=== PATIENT | female | born 1950 | race Caucasian/White ===

== ENCOUNTER → 2024-07-13 09:53 | Outpatient (CLI) | payer MEDICARE, BC, SELFPAY | LOC: WC 10:03 | PROVIDERS: Family Provider Specialist; PCP Student in an Organized Health Care Education/Training Program; Referring Provider Student in an Organized Health Care Education/Training Program; Visit Provider Surgery | DX: L97.812 Non-pressure chronic ulcer of other part of right lower leg with fat layer exposed (principal); L59.8 Other specified disorders of the skin and subcutaneous tissue related to radiation; I10 Essential (primary) hypertension; I25.10 Atherosclerotic heart disease of native coronary artery without angina pectoris | CPT/HCPCS: 11042; 87070; 87077; 87147; 87186; 87205; 99203; 99214 ==

== ENCOUNTER → 2024-07-21 08:43 | Outpatient (CLI) | payer MEDICARE, BC, SELFPAY | LOC: WC 08:47 | PROVIDERS: Family Provider Specialist; PCP Student in an Organized Health Care Education/Training Program; Referring Provider Student in an Organized Health Care Education/Training Program; Visit Provider Surgery | DX: L59.8 Other specified disorders of the skin and subcutaneous tissue related to radiation (principal); L97.812 Non-pressure chronic ulcer of other part of right lower leg with fat layer exposed | CPT/HCPCS: 11042; 99213 ==

== ENCOUNTER → 2024-07-28 10:48 | Outpatient (CLI) | payer MEDICARE, BC, SELFPAY | PROVIDERS: Family Provider Specialist; PCP Student in an Organized Health Care Education/Training Program; Referring Provider Student in an Organized Health Care Education/Training Program; Visit Provider Surgery | DX: L59.8 Other specified disorders of the skin and subcutaneous tissue related to radiation (principal); L97.812 Non-pressure chronic ulcer of other part of right lower leg with fat layer exposed | CPT/HCPCS: 11042 ==

== ENCOUNTER → 2024-07-28 11:44 | Outpatient (CLI) | payer MEDICARE, BC, SELFPAY ==
--- NOTE | 2024-07-28 11:45 | DI.RAD.S_ITS ---
PROCEDURE: XR CHEST 2V INDICATIONS: evaluation for hyperbaric oxygen therapy TECHNIQUE: 2 views of the chest were acquired. COMPARISON: None. FINDINGS: Heart, mediastinum and pulmonary vascular: Heart is normal in size and configuration. 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 Pulmonary vascular is normal. Lungs: Minimal perihilar airspace disease is likely fibrosis Pleural spaces: Normal-no effusions or pneumothorax. IMPRESSION: No acute cardiopulmonary disease Small hiatal hernia Dictated by: Joshua Rivas M.D. on 07/29/2024 at 9:53 Approved by: Joshua Rivas M.D. on 07/29/2024 at 9:55
== END ==
PROVIDERS: Family Provider Specialist; PCP Student in an Organized Health Care Education/Training Program; Referring Provider Surgery; Visit Provider Surgery
DX: Z01.818 Encounter for other preprocedural examination (principal); K44.9 Diaphragmatic hernia without obstruction or gangrene
CPT/HCPCS: 71046

== ENCOUNTER → 2024-07-31 14:01 | Outpatient (CLI) | payer MEDICARE, BC, SELFPAY | PROVIDERS: Family Provider Specialist; PCP Student in an Organized Health Care Education/Training Program; Referring Provider Student in an Organized Health Care Education/Training Program; Visit Provider Physician Assistant | DX: L59.8 Other specified disorders of the skin and subcutaneous tissue related to radiation (principal); L97.812 Non-pressure chronic ulcer of other part of right lower leg with fat layer exposed | CPT/HCPCS: 99183; G0277 ==

== ENCOUNTER → 2024-08-04 11:21 | Outpatient (CLI) | payer MEDICARE, BC, SELFPAY | PROVIDERS: Family Provider Specialist; PCP Student in an Organized Health Care Education/Training Program; Referring Provider Student in an Organized Health Care Education/Training Program; Visit Provider Surgery | DX: L97.812 Non-pressure chronic ulcer of other part of right lower leg with fat layer exposed (principal); L59.8 Other specified disorders of the skin and subcutaneous tissue related to radiation | CPT/HCPCS: 11042; 99183; G0277 ==

== ENCOUNTER → 2024-08-05 16:29 | Outpatient (CLI) | payer MEDICARE, BC, SELFPAY | PROVIDERS: Family Provider Specialist; PCP Student in an Organized Health Care Education/Training Program; Referring Provider Student in an Organized Health Care Education/Training Program; Visit Provider Surgery | DX: L59.8 Other specified disorders of the skin and subcutaneous tissue related to radiation (principal); L97.812 Non-pressure chronic ulcer of other part of right lower leg with fat layer exposed | CPT/HCPCS: 99183; G0277 ==

== ENCOUNTER → 2024-08-06 15:53 | Outpatient (CLI) | payer MEDICARE, BC, SELFPAY | PROVIDERS: Family Provider Specialist; PCP Student in an Organized Health Care Education/Training Program; Referring Provider Student in an Organized Health Care Education/Training Program; Visit Provider Surgery | DX: L97.812 Non-pressure chronic ulcer of other part of right lower leg with fat layer exposed (principal); L59.8 Other specified disorders of the skin and subcutaneous tissue related to radiation | CPT/HCPCS: 99183; G0277 ==

== ENCOUNTER → 2024-08-07 15:29 | Outpatient (CLI) | payer MEDICARE, BC, SELFPAY | PROVIDERS: Family Provider Specialist; PCP Student in an Organized Health Care Education/Training Program; Referring Provider Student in an Organized Health Care Education/Training Program; Visit Provider Surgery | DX: L97.812 Non-pressure chronic ulcer of other part of right lower leg with fat layer exposed (principal); L59.8 Other specified disorders of the skin and subcutaneous tissue related to radiation | CPT/HCPCS: 99183; G0277 ==

== ENCOUNTER → 2024-08-10 16:11 | Outpatient (CLI) | payer MEDICARE, BC, SELFPAY | PROVIDERS: Family Provider Specialist; PCP Student in an Organized Health Care Education/Training Program; Referring Provider Student in an Organized Health Care Education/Training Program; Visit Provider Surgery | DX: L59.8 Other specified disorders of the skin and subcutaneous tissue related to radiation (principal); L97.812 Non-pressure chronic ulcer of other part of right lower leg with fat layer exposed | CPT/HCPCS: 99183; G0277 ==

== ENCOUNTER → 2024-08-11 11:20 | Outpatient (CLI) | payer MEDICARE, BC, SELFPAY | LOC: WC 11:28 | PROVIDERS: Family Provider Specialist; PCP Student in an Organized Health Care Education/Training Program; Referring Provider Student in an Organized Health Care Education/Training Program; Visit Provider Surgery | DX: L59.8 Other specified disorders of the skin and subcutaneous tissue related to radiation (principal); L97.812 Non-pressure chronic ulcer of other part of right lower leg with fat layer exposed; E66.9 Obesity, unspecified; Z68.41 Body mass index [BMI] 40.0-44.9, adult; R60.0 Localized edema | CPT/HCPCS: 11042; 99183; 99213; G0277 ==

== ENCOUNTER → 2024-08-12 13:28 | Outpatient (CLI) | payer MEDICARE, BC, SELFPAY | LOC: WC 13:30 | PROVIDERS: Family Provider Specialist; PCP Student in an Organized Health Care Education/Training Program; Referring Provider Student in an Organized Health Care Education/Training Program; Visit Provider Surgery | DX: L59.8 Other specified disorders of the skin and subcutaneous tissue related to radiation (principal); L97.812 Non-pressure chronic ulcer of other part of right lower leg with fat layer exposed | CPT/HCPCS: 99183; G0277 ==

== ENCOUNTER → 2024-08-13 13:20 | Outpatient (CLI) | payer MEDICARE, BC, SELFPAY | LOC: WC 13:23 | PROVIDERS: Family Provider Specialist; PCP Student in an Organized Health Care Education/Training Program; Referring Provider Student in an Organized Health Care Education/Training Program; Visit Provider Surgery | DX: L59.8 Other specified disorders of the skin and subcutaneous tissue related to radiation (principal); L97.812 Non-pressure chronic ulcer of other part of right lower leg with fat layer exposed | CPT/HCPCS: 99183; G0277 ==

== ENCOUNTER → 2024-08-14 15:41 | Outpatient (CLI) | payer MEDICARE, BC, SELFPAY | LOC: WC 15:43 | PROVIDERS: Family Provider Specialist; PCP Student in an Organized Health Care Education/Training Program; Referring Provider Student in an Organized Health Care Education/Training Program; Visit Provider Physician Assistant | DX: L59.8 Other specified disorders of the skin and subcutaneous tissue related to radiation (principal); L97.812 Non-pressure chronic ulcer of other part of right lower leg with fat layer exposed | CPT/HCPCS: 99183; G0277 ==

== ENCOUNTER → 2024-08-17 15:35 | Outpatient (CLI) | payer MEDICARE, BC, SELFPAY | LOC: WC 15:36 | PROVIDERS: Family Provider Specialist; PCP Student in an Organized Health Care Education/Training Program; Referring Provider Student in an Organized Health Care Education/Training Program; Visit Provider Surgery | DX: L59.8 Other specified disorders of the skin and subcutaneous tissue related to radiation (principal); L97.812 Non-pressure chronic ulcer of other part of right lower leg with fat layer exposed | CPT/HCPCS: 99183; G0277 ==

== ENCOUNTER → 2024-08-18 12:42 | Outpatient (CLI) | payer MEDICARE, BC, SELFPAY | LOC: WC 12:43 | PROVIDERS: Family Provider Specialist; PCP Student in an Organized Health Care Education/Training Program; Referring Provider Student in an Organized Health Care Education/Training Program; Visit Provider Surgery | DX: L59.8 Other specified disorders of the skin and subcutaneous tissue related to radiation (principal); L97.812 Non-pressure chronic ulcer of other part of right lower leg with fat layer exposed | CPT/HCPCS: 15271; 99183; 99212; G0277; Q4196 ==

== ENCOUNTER → 2024-08-19 16:23 | Outpatient (CLI) | payer MEDICARE, BC, SELFPAY | LOC: WC 16:30 | PROVIDERS: Family Provider Specialist; PCP Student in an Organized Health Care Education/Training Program; Referring Provider Student in an Organized Health Care Education/Training Program; Visit Provider Surgery | DX: L59.8 Other specified disorders of the skin and subcutaneous tissue related to radiation (principal); L97.812 Non-pressure chronic ulcer of other part of right lower leg with fat layer exposed | CPT/HCPCS: 99183; G0277 ==

== ENCOUNTER → 2024-08-20 11:56 | Outpatient (CLI) | payer MEDICARE, BC, SELFPAY | LOC: WC 12:00 | PROVIDERS: Family Provider Specialist; PCP Student in an Organized Health Care Education/Training Program; Referring Provider Student in an Organized Health Care Education/Training Program; Visit Provider Surgery | DX: L59.8 Other specified disorders of the skin and subcutaneous tissue related to radiation (principal); L97.812 Non-pressure chronic ulcer of other part of right lower leg with fat layer exposed | CPT/HCPCS: 99183; G0277 ==

== ENCOUNTER → 2024-08-21 16:07 | Outpatient (CLI) | payer MEDICARE, BC, SELFPAY | LOC: WC 16:12 | PROVIDERS: Family Provider Specialist; PCP Student in an Organized Health Care Education/Training Program; Referring Provider Student in an Organized Health Care Education/Training Program; Visit Provider Physician Assistant | DX: L59.8 Other specified disorders of the skin and subcutaneous tissue related to radiation (principal); L97.812 Non-pressure chronic ulcer of other part of right lower leg with fat layer exposed | CPT/HCPCS: 99183; G0277 ==

== ENCOUNTER → 2024-08-24 15:27 | Outpatient (CLI) | payer MEDICARE, BC, SELFPAY | LOC: WC 15:29 | PROVIDERS: Family Provider Specialist; PCP Student in an Organized Health Care Education/Training Program; Referring Provider Student in an Organized Health Care Education/Training Program; Visit Provider Surgery | DX: L59.8 Other specified disorders of the skin and subcutaneous tissue related to radiation (principal); L97.812 Non-pressure chronic ulcer of other part of right lower leg with fat layer exposed | CPT/HCPCS: 99183; G0277 ==

== ENCOUNTER → 2024-08-25 11:37 | Outpatient (CLI) | payer MEDICARE, BC, SELFPAY | LOC: WC 11:40 | PROVIDERS: Family Provider Specialist; PCP Student in an Organized Health Care Education/Training Program; Referring Provider Student in an Organized Health Care Education/Training Program; Visit Provider Surgery | DX: L59.8 Other specified disorders of the skin and subcutaneous tissue related to radiation (principal); L97.812 Non-pressure chronic ulcer of other part of right lower leg with fat layer exposed | CPT/HCPCS: 11042; 99183; G0277 ==

== ENCOUNTER → 2024-08-26 15:50 | Outpatient (CLI) | payer MEDICARE, BC, SELFPAY | LOC: WC 15:52 | PROVIDERS: Family Provider Specialist; PCP Student in an Organized Health Care Education/Training Program; Referring Provider Student in an Organized Health Care Education/Training Program; Visit Provider Surgery | DX: L59.8 Other specified disorders of the skin and subcutaneous tissue related to radiation (principal); L97.812 Non-pressure chronic ulcer of other part of right lower leg with fat layer exposed | CPT/HCPCS: 99183; G0277 ==

== ENCOUNTER → 2024-08-27 14:07 | Outpatient (CLI) | payer MEDICARE, BC, SELFPAY | PROVIDERS: Family Provider Specialist; PCP Student in an Organized Health Care Education/Training Program; Referring Provider Student in an Organized Health Care Education/Training Program; Visit Provider Surgery | DX: L97.812 Non-pressure chronic ulcer of other part of right lower leg with fat layer exposed (principal); L59.8 Other specified disorders of the skin and subcutaneous tissue related to radiation | CPT/HCPCS: 99183; G0277 ==

== ENCOUNTER → 2024-08-28 14:33 | Outpatient (CLI) | payer MEDICARE, BC, SELFPAY | LOC: WC 14:35 | PROVIDERS: Family Provider Specialist; PCP Student in an Organized Health Care Education/Training Program; Referring Provider Student in an Organized Health Care Education/Training Program; Visit Provider Physician Assistant | DX: L97.812 Non-pressure chronic ulcer of other part of right lower leg with fat layer exposed (principal); L59.8 Other specified disorders of the skin and subcutaneous tissue related to radiation | CPT/HCPCS: 99183; G0277 ==

== ENCOUNTER → 2024-08-31 11:32 | Outpatient (CLI) | payer MEDICARE, BC, SELFPAY | LOC: WC 11:33 | PROVIDERS: Family Provider Specialist; PCP Student in an Organized Health Care Education/Training Program; Referring Provider Student in an Organized Health Care Education/Training Program; Visit Provider Physician Assistant | DX: L59.8 Other specified disorders of the skin and subcutaneous tissue related to radiation (principal); L97.812 Non-pressure chronic ulcer of other part of right lower leg with fat layer exposed | CPT/HCPCS: 11042; 99183; 99213; G0277 ==

== ENCOUNTER → 2024-09-01 12:57 | Outpatient (CLI) | payer MEDICARE, BC, SELFPAY | PROVIDERS: Family Provider Specialist; PCP Student in an Organized Health Care Education/Training Program; Referring Provider Student in an Organized Health Care Education/Training Program; Visit Provider Surgery | DX: L59.8 Other specified disorders of the skin and subcutaneous tissue related to radiation (principal); L97.812 Non-pressure chronic ulcer of other part of right lower leg with fat layer exposed | CPT/HCPCS: 99183; G0277 ==

== ENCOUNTER → 2024-09-02 13:39 | Outpatient (CLI) | payer MEDICARE, BC, SELFPAY | PROVIDERS: Family Provider Specialist; PCP Student in an Organized Health Care Education/Training Program; Referring Provider Student in an Organized Health Care Education/Training Program; Visit Provider Surgery | DX: L59.8 Other specified disorders of the skin and subcutaneous tissue related to radiation (principal); L97.812 Non-pressure chronic ulcer of other part of right lower leg with fat layer exposed | CPT/HCPCS: 99183; G0277 ==

== ENCOUNTER → 2024-09-03 14:07 | Outpatient (CLI) | payer MEDICARE, BC, SELFPAY | PROVIDERS: Family Provider Specialist; PCP Student in an Organized Health Care Education/Training Program; Referring Provider Student in an Organized Health Care Education/Training Program; Visit Provider Surgery | DX: L59.8 Other specified disorders of the skin and subcutaneous tissue related to radiation (principal); L97.812 Non-pressure chronic ulcer of other part of right lower leg with fat layer exposed | CPT/HCPCS: 99183; G0277 ==

== ENCOUNTER → 2024-09-04 14:16 | Outpatient (CLI) | payer MEDICARE, BC, SELFPAY | LOC: WC 14:17 | PROVIDERS: Family Provider Specialist; PCP Student in an Organized Health Care Education/Training Program; Referring Provider Student in an Organized Health Care Education/Training Program; Visit Provider Surgery | DX: L59.8 Other specified disorders of the skin and subcutaneous tissue related to radiation (principal); L97.812 Non-pressure chronic ulcer of other part of right lower leg with fat layer exposed | CPT/HCPCS: 99183; G0277 ==

== ENCOUNTER → 2024-09-07 15:09 | Outpatient (CLI) | payer MEDICARE, BC, SELFPAY | LOC: WC 15:10 | PROVIDERS: Family Provider Specialist; PCP Student in an Organized Health Care Education/Training Program; Referring Provider Student in an Organized Health Care Education/Training Program; Visit Provider Surgery | DX: L59.8 Other specified disorders of the skin and subcutaneous tissue related to radiation (principal); L97.812 Non-pressure chronic ulcer of other part of right lower leg with fat layer exposed | CPT/HCPCS: 99183; G0277 ==

== ENCOUNTER → 2024-09-08 15:50 | Outpatient (CLI) | payer MEDICARE, BC, SELFPAY | LOC: WC 15:52 | PROVIDERS: Family Provider Specialist; PCP Student in an Organized Health Care Education/Training Program; Referring Provider Student in an Organized Health Care Education/Training Program; Visit Provider Surgery | DX: L59.8 Other specified disorders of the skin and subcutaneous tissue related to radiation (principal); L97.812 Non-pressure chronic ulcer of other part of right lower leg with fat layer exposed | CPT/HCPCS: 11042; 99183; 99213; G0277 ==

== ENCOUNTER → 2024-09-09 16:17 | Outpatient (CLI) | payer MEDICARE, BC, SELFPAY | LOC: WC 16:19 | PROVIDERS: Family Provider Specialist; PCP Student in an Organized Health Care Education/Training Program; Referring Provider Student in an Organized Health Care Education/Training Program; Visit Provider Surgery | DX: L59.8 Other specified disorders of the skin and subcutaneous tissue related to radiation (principal); L97.812 Non-pressure chronic ulcer of other part of right lower leg with fat layer exposed | CPT/HCPCS: 99183; G0277 ==

== ENCOUNTER → 2024-09-10 11:07 | Outpatient (CLI) | payer MEDICARE, BC, SELFPAY | LOC: WC 11:14 | PROVIDERS: Family Provider Specialist; PCP Student in an Organized Health Care Education/Training Program; Referring Provider Student in an Organized Health Care Education/Training Program; Visit Provider Surgery | DX: L59.8 Other specified disorders of the skin and subcutaneous tissue related to radiation (principal); L97.812 Non-pressure chronic ulcer of other part of right lower leg with fat layer exposed | CPT/HCPCS: 99183; G0277 ==

== ENCOUNTER → 2024-09-14 16:03 | Outpatient (CLI) | payer MEDICARE, BC, SELFPAY | PROVIDERS: Family Provider Specialist; PCP Student in an Organized Health Care Education/Training Program; Referring Provider Student in an Organized Health Care Education/Training Program; Visit Provider Surgery | DX: L59.8 Other specified disorders of the skin and subcutaneous tissue related to radiation (principal); L97.812 Non-pressure chronic ulcer of other part of right lower leg with fat layer exposed | CPT/HCPCS: 99183; G0277 ==

== ENCOUNTER → 2024-09-15 15:39 | Outpatient (CLI) | payer MEDICARE, BC, SELFPAY | PROVIDERS: Family Provider Specialist; PCP Student in an Organized Health Care Education/Training Program; Referring Provider Student in an Organized Health Care Education/Training Program; Visit Provider Surgery | DX: L59.8 Other specified disorders of the skin and subcutaneous tissue related to radiation (principal); L97.812 Non-pressure chronic ulcer of other part of right lower leg with fat layer exposed | CPT/HCPCS: 11042; 99183; G0277 ==

== ENCOUNTER → 2024-09-16 16:00 | Outpatient (CLI) | payer MEDICARE, BC, SELFPAY | PROVIDERS: Family Provider Specialist; PCP Student in an Organized Health Care Education/Training Program; Referring Provider Student in an Organized Health Care Education/Training Program; Visit Provider Surgery | DX: L59.8 Other specified disorders of the skin and subcutaneous tissue related to radiation (principal); L97.812 Non-pressure chronic ulcer of other part of right lower leg with fat layer exposed | CPT/HCPCS: 99183; G0277 ==

== ENCOUNTER → 2024-09-16 16:49 | Outpatient (CLI) | payer MEDICARE, BC, SELFPAY ==
[2024-09-16 18:51] LABS: Hemoglobin A1C% w Est Avg Glu 5.4 % (4.0-6.0)
== END ==
PROVIDERS: Family Provider Specialist; PCP Student in an Organized Health Care Education/Training Program; Referring Provider Surgery; Visit Provider Surgery
DX: L97.812 Non-pressure chronic ulcer of other part of right lower leg with fat layer exposed (principal); L59.8 Other specified disorders of the skin and subcutaneous tissue related to radiation
CPT/HCPCS: 36415; 83036

== ENCOUNTER → 2024-09-17 14:03 | Outpatient (CLI) | payer MEDICARE, BC, SELFPAY | PROVIDERS: Family Provider Specialist; PCP Student in an Organized Health Care Education/Training Program; Referring Provider Student in an Organized Health Care Education/Training Program; Visit Provider Surgery | DX: L59.8 Other specified disorders of the skin and subcutaneous tissue related to radiation (principal); L97.812 Non-pressure chronic ulcer of other part of right lower leg with fat layer exposed | CPT/HCPCS: 99183; G0277 ==

== ENCOUNTER → 2024-09-18 12:42 | Outpatient (CLI) | payer MEDICARE, BC, SELFPAY | PROVIDERS: Family Provider Specialist; PCP Student in an Organized Health Care Education/Training Program; Referring Provider Student in an Organized Health Care Education/Training Program; Visit Provider Nurse Practitioner Family | DX: L59.8 Other specified disorders of the skin and subcutaneous tissue related to radiation (principal); L97.812 Non-pressure chronic ulcer of other part of right lower leg with fat layer exposed | CPT/HCPCS: 99183; G0277 ==

== ENCOUNTER → 2024-09-22 11:14 | Outpatient (CLI) | payer MEDICARE, BC, SELFPAY | LOC: WC 11:15 | PROVIDERS: Family Provider Specialist; PCP Student in an Organized Health Care Education/Training Program; Referring Provider Student in an Organized Health Care Education/Training Program; Visit Provider Surgery | DX: L59.8 Other specified disorders of the skin and subcutaneous tissue related to radiation (principal); L97.812 Non-pressure chronic ulcer of other part of right lower leg with fat layer exposed; L53.9 Erythematous condition, unspecified; E66.9 Obesity, unspecified; Z68.41 Body mass index [BMI] 40.0-44.9, adult | CPT/HCPCS: 15271; Q4159 ==

== ENCOUNTER → 2024-09-23 13:04 | Outpatient (CLI) | payer MEDICARE, BC, SELFPAY | LOC: WC 13:06 | PROVIDERS: Family Provider Specialist; PCP Student in an Organized Health Care Education/Training Program; Referring Provider Student in an Organized Health Care Education/Training Program; Visit Provider Nurse Practitioner Family | DX: L59.8 Other specified disorders of the skin and subcutaneous tissue related to radiation (principal); L97.812 Non-pressure chronic ulcer of other part of right lower leg with fat layer exposed | CPT/HCPCS: 99183; G0277 ==

== ENCOUNTER → 2024-09-24 15:42 | Outpatient (CLI) | payer MEDICARE, BC, SELFPAY | LOC: WC 15:43 | PROVIDERS: Family Provider Specialist; PCP Student in an Organized Health Care Education/Training Program; Referring Provider Student in an Organized Health Care Education/Training Program; Visit Provider Nurse Practitioner Family | DX: L59.8 Other specified disorders of the skin and subcutaneous tissue related to radiation (principal); L97.812 Non-pressure chronic ulcer of other part of right lower leg with fat layer exposed | CPT/HCPCS: 99183; G0277 ==

== ENCOUNTER → 2024-09-25 14:40 | Outpatient (CLI) | payer MEDICARE, BC, SELFPAY | LOC: WC 14:41 | PROVIDERS: Family Provider Specialist; PCP Student in an Organized Health Care Education/Training Program; Referring Provider Student in an Organized Health Care Education/Training Program; Visit Provider Physician Assistant | DX: L59.8 Other specified disorders of the skin and subcutaneous tissue related to radiation (principal); L97.812 Non-pressure chronic ulcer of other part of right lower leg with fat layer exposed | CPT/HCPCS: 99183; G0277 ==

== ENCOUNTER → 2024-09-28 15:57 | Outpatient (CLI) | payer MEDICARE, BC, SELFPAY | LOC: WC 15:58 | PROVIDERS: Family Provider Specialist; PCP Student in an Organized Health Care Education/Training Program; Referring Provider Student in an Organized Health Care Education/Training Program; Visit Provider Surgery | DX: L59.8 Other specified disorders of the skin and subcutaneous tissue related to radiation (principal); L97.812 Non-pressure chronic ulcer of other part of right lower leg with fat layer exposed | CPT/HCPCS: 99183; G0277 ==

== ENCOUNTER → 2024-09-29 10:11 | Outpatient (CLI) | payer MEDICARE, BC, SELFPAY | LOC: WC 10:19 | PROVIDERS: Family Provider Specialist; PCP Student in an Organized Health Care Education/Training Program; Referring Provider Student in an Organized Health Care Education/Training Program; Visit Provider Surgery | DX: L97.812 Non-pressure chronic ulcer of other part of right lower leg with fat layer exposed (principal); L59.8 Other specified disorders of the skin and subcutaneous tissue related to radiation; Z85.858 Personal history of malignant neoplasm of other endocrine glands; E66.01 Morbid (severe) obesity due to excess calories; Z68.41 Body mass index [BMI] 40.0-44.9, adult | CPT/HCPCS: 15271; 99183; G0277; Q4159 ==

== ENCOUNTER → 2024-09-30 15:20 | Outpatient (CLI) | payer MEDICARE, BC, SELFPAY | LOC: WC 15:22 | PROVIDERS: Family Provider Specialist; PCP Student in an Organized Health Care Education/Training Program; Referring Provider Student in an Organized Health Care Education/Training Program; Visit Provider Surgery | DX: L59.8 Other specified disorders of the skin and subcutaneous tissue related to radiation (principal); L97.812 Non-pressure chronic ulcer of other part of right lower leg with fat layer exposed | CPT/HCPCS: 99183; G0277 ==

== ENCOUNTER → 2024-10-02 14:46 | Outpatient (CLI) | payer MEDICARE, BC, SELFPAY | LOC: WC 14:47 | PROVIDERS: Family Provider Specialist; PCP Student in an Organized Health Care Education/Training Program; Referring Provider Student in an Organized Health Care Education/Training Program; Visit Provider Physician Assistant | DX: L59.8 Other specified disorders of the skin and subcutaneous tissue related to radiation (principal); L97.812 Non-pressure chronic ulcer of other part of right lower leg with fat layer exposed | CPT/HCPCS: 99183; G0277 ==

== ENCOUNTER → 2024-10-05 13:44 | Outpatient (CLI) | payer MEDICARE, BC, SELFPAY | LOC: WC 13:46 | PROVIDERS: Family Provider Specialist; PCP Student in an Organized Health Care Education/Training Program; Referring Provider Student in an Organized Health Care Education/Training Program; Visit Provider Surgery | DX: L59.8 Other specified disorders of the skin and subcutaneous tissue related to radiation (principal); L97.812 Non-pressure chronic ulcer of other part of right lower leg with fat layer exposed | CPT/HCPCS: 99183; G0277 ==

== ENCOUNTER → 2024-10-06 11:45 | Outpatient (CLI) | payer MEDICARE, BC, SELFPAY | LOC: WC 11:46 | PROVIDERS: Family Provider Specialist; PCP Student in an Organized Health Care Education/Training Program; Referring Provider Student in an Organized Health Care Education/Training Program; Visit Provider Surgery | DX: L59.8 Other specified disorders of the skin and subcutaneous tissue related to radiation (principal); L97.812 Non-pressure chronic ulcer of other part of right lower leg with fat layer exposed; L08.89 Other specified local infections of the skin and subcutaneous tissue; I10 Essential (primary) hypertension; Z85.828 Personal history of other malignant neoplasm of skin; E66.9 Obesity, unspecified; Z68.41 Body mass index [BMI] 40.0-44.9, adult; I25.10 Atherosclerotic heart disease of native coronary artery without angina pectoris; Z95.2 Presence of prosthetic heart valve; E21.3 Hyperparathyroidism, unspecified | CPT/HCPCS: 11042; 87070; 87075; 87077; 87147; 87186; 87205; 99183; 99213; G0277 ==

== ENCOUNTER → 2024-10-07 14:14 | Outpatient (CLI) | payer MEDICARE, BC, SELFPAY | LOC: WC 14:25 | PROVIDERS: Family Provider Specialist; PCP Student in an Organized Health Care Education/Training Program; Referring Provider Student in an Organized Health Care Education/Training Program; Visit Provider Surgery | DX: L59.8 Other specified disorders of the skin and subcutaneous tissue related to radiation (principal); L97.812 Non-pressure chronic ulcer of other part of right lower leg with fat layer exposed | CPT/HCPCS: 99183; G0277 ==

== ENCOUNTER → 2024-11-03 15:06 | Outpatient (CLI) | payer MEDICARE, BC, SELFPAY | LOC: WC 15:11 | PROVIDERS: Family Provider Specialist; PCP Student in an Organized Health Care Education/Training Program; Referring Provider Student in an Organized Health Care Education/Training Program; Visit Provider Surgery | DX: L59.8 Other specified disorders of the skin and subcutaneous tissue related to radiation (principal); L97.812 Non-pressure chronic ulcer of other part of right lower leg with fat layer exposed; G43.909 Migraine, unspecified, not intractable, without status migrainosus; R23.3 Spontaneous ecchymoses; I10 Essential (primary) hypertension; I25.10 Atherosclerotic heart disease of native coronary artery without angina pectoris; Z95.2 Presence of prosthetic heart valve; Z85.828 Personal history of other malignant neoplasm of skin; E66.9 Obesity, unspecified; Z68.41 Body mass index [BMI] 40.0-44.9, adult | CPT/HCPCS: 11042; 99213 ==

== ENCOUNTER → 2024-11-04 11:43 | Outpatient (CLI) | payer MEDICARE, BC, SELFPAY | LOC: WC 11:46 | PROVIDERS: Family Provider Specialist; PCP Student in an Organized Health Care Education/Training Program; Referring Provider Student in an Organized Health Care Education/Training Program; Visit Provider Surgery | DX: L59.8 Other specified disorders of the skin and subcutaneous tissue related to radiation (principal); L97.812 Non-pressure chronic ulcer of other part of right lower leg with fat layer exposed | CPT/HCPCS: 99183; G0277 ==

== ENCOUNTER → 2024-11-05 10:55 | Outpatient (CLI) | payer MEDICARE, BC, SELFPAY | PROVIDERS: Family Provider Specialist; PCP Student in an Organized Health Care Education/Training Program; Referring Provider Student in an Organized Health Care Education/Training Program; Visit Provider Surgery | DX: L59.8 Other specified disorders of the skin and subcutaneous tissue related to radiation (principal); L97.812 Non-pressure chronic ulcer of other part of right lower leg with fat layer exposed | CPT/HCPCS: 99183; G0277 ==

== ENCOUNTER 2024-11-05 14:30 | Outpatient (RCR) | payer MEDICARE, BC, SELFPAY ==
--- NOTE | 2024-10-05 11:04 | PT.OIE ---
Current Diagnoses Dizziness and giddiness (10/05/24) Past Medical History (Last Reviewed 09/22/20 @ 17:33 by Maribel Grigsby MD) Colon polyps FH: coronary artery bypass surgery Hyperlipidemia Hypertension Lichen sclerosus et atrophicus of the vulva Migraines Postmenopause atrophic vaginitis Past Surgical History (Last Reviewed 09/22/20 @ 17:33 by Maribel Grigsby MD) Status post laparoscopic cholecystectomy Visit Care Team Role Provider Type Mayra Hardy MD Family Provider Non-Staff Specialty: Family Practice Address: [address] [place] [address], [id number] Email: Riley Figueroa MD Attending Provider Non-Staff Primary Care Provider Referring Provider Specialty: Medical Address: [address] [place] [address], [id number] Email: Physical Therapy Initial Evaluation PT-OP-A Visit Information Start: 10/05/24 09:38 Freq: Status: Active Protocol: Document 10/05/24 09:45 DCW (Rec: 10/05/24 11:04 DCW [id number]) Out-Patient Physical Therapy Visit Information Visit Information Visit Type Initial Evaluation Visit Start Time 09:45 Visit Stop Time 10:35 Visit Number 1 Number of GAS MASK INSPECTOR Visits 0 Evaluation Information Evaluation Date 10/05/24 PT-OP-B Current Condition Start: 10/05/24 09:38 Freq: Status: Active Protocol: Document 10/05/24 09:45 DCW (Rec: 10/05/24 11:04 DCW [id number]) Current Condition History of Current Condition Onset Date ~2021 Current Complaints Position-dependent Vertigo History of Current Pt is a 74 year old female complaining of a ~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 Pt reports episodes last 20 seconds. Symptoms are provoked by lying back or onto her right side. Pt reports that her symptoms were present three years ago, she received something that was supposedly the Gladys Maneuver to do at home, which seemed to help somewhat, but symptoms returned around Memorial day this year. Pt denies recent hearing changes, tinnitus, diplopia, dysarthria, or decreased mentation/consciousness. Pt reports symptoms are waxing /waning in nature. Pt denies hx of hyperlipidemia, diabetes, head trauma, seizure, migraines, CVA, anxiety /panic disorders, depression, or excessive smoking or drinking. PT-OP-C Subjective Start: 10/05/24 09:38 Freq: Status: Active Protocol: Document 10/05/24 09:45 DCW (Rec: 10/05/24 11:04 DCW [id number]) OP-PT Subjective Patient Comments Patient Comments I went back and forth over whether I should eat breakfast or not, I tend to get a little nauseated with this. Patient Questionnaires Dizziness Handicap Inventory DHI Score 24% Other Questionnaire Name Falls Efficacy Scale - International: and Score PT-OP-O Vestibular Start: 10/05/24 09:38 Freq: Status: Active Protocol: Document 10/05/24 09:45 DCW (Rec: 10/05/24 11:04 DCW [id number]) Vestibular Assessment Auditory Tests Carbone Test Within normal limits Rinne Test Negative Air Conduction Equal Results Visual Testing Smooth Pursuits WNL Horizontal Smooth Pursuits WNL Vertical Saccades Horizontal WNL Saccades Vertical WNL Gaze Evoked Negative Nystagmus With Fixation Heave Test Negative Thrust Head Negative Tera String Test WNL Positional Testing Radha-Hallpike Positive Right,Negative Left,Upbeating,< 60 Seconds PT-OP-Q Treatments Start: 10/05/24 09:38 Freq: Status: Active Protocol: Document 10/05/24 09:45 DCW (Rec: 10/05/24 11:04 DCW [id number]) Self-Care/Home Management Treatment Education Other Education Pt was educated on vestibular anatomy and physiology, BPPV, expectations for treatment, possible recurrence ( BPPV has a ~50% recurrence rate in the five years following treatment), and post-Gladys restrictions. Canalithic Repositioning BPPV Treatment Gladys Affected Canal(s) Right posterior Reps x1 Comments Modified Gladys PT-OP-T Assessment and Plan Start: 10/05/24 09:38 Freq: Status: Active Protocol: Document 10/05/24 09:45 DCW (Rec: 10/05/24 11:04 DCW [id number]) Physical Therapy Assessment Rehab Potential Rehabilitation Excellent Potential Evaluation Complexity Number of Personal 3 or More Factors/ Comorbidities Number of Body 4 or More Systems Impaired Clinical Unstable Presentation at Evaluation Impairments Impairments Balance,Functional Activities,Functional Mobility,Gait, Vestibular Goals Two Impairment Positive right [place]-Hallpike test Skilled Nursing Goal (LTG) Pt to present with negative positional testing bilaterally LTG Duration 11/05/24 One Impairment Pt unable to lay on her right side due to position- dependent vertigo Short Term Goal (STG Pt to report no vertigo with positional changes for one ) week in order to improve her bed mobility. STG Duration 10/23/24 Assessment Summary Assessment During right [place]-Hallpike test, pt complained of vertigo and demonstrated up-beating, torsional nystagmus lasting approximately 15 seconds, consistent with diagnosis of left/right-sided posterior canal BPPV , canalithiasis-type. Pt was treated with a right-sided modified Gladys maneuver. Pt complained of symptoms in the first and third position, which is normally indicative of a successful treatment. Further positional testing was negative. Pt was educated on BPPV, expectations for treatment, possible recurrence ( BPPV has a ~50% recurrence rate in the five years following treatment), and post-Gladys restrictions. Pt to return in ~1 week for a follow-up appointment, and intermittently afterward as indicated for treatment of BPPV. Physical Therapy Plan Frequency and Duration Frequency of 1-2x/week Treatment Plan of Care Start 10/05/24 Date Plan of Care End 11/05/24 Date Therapeutic Interventions Therapeutic Balance Training,Canalithic Repositioning,Home Exercise Interventions Program,Manual Therapy,Neuromuscular Re-education, Patient/Caregiver Education,Self-Care/Home Management, Soft Tissue Mobilization,Therapeutic Activities, Therapeutic Exercises,Vestibular Rehabilitation Next Visit Focus/Plan Next Note Type Treatment Note Next Visit Plan Positional testing, CRM as indicated
--- NOTE | 2024-10-05 11:04 | PT.OPPOC ---
Physical, Occupational & Speech Therapy At [facility] Current Diagnoses Dizziness and giddiness (10/05/24) Visit Care Team Role Provider Type Mayra Hardy MD Family Provider Non-Staff Specialty: Family Practice Address: [address] [place] [address], [id number] Email: Riley Figueroa MD Attending Provider Non-Staff Primary Care Provider Referring Provider Specialty: Medical Address: [address] [place] [address], [facility] Email: Plan Of Care PT-OP-B Current Condition Start: 10/05/24 09:38 Freq: Status: Active Protocol: Document 10/05/24 09:45 DCW (Rec: 10/05/24 11:04 DCW [id number]) Current Condition History of Current Condition Onset Date ~2021 Current Complaints Position-dependent Vertigo History of Current Pt is a 74 year old female complaining of a ~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 Pt reports episodes last 20 seconds. Symptoms are provoked by lying back or onto her right side. Pt reports that her symptoms were present three years ago, she received something that was supposedly the Gladys Maneuver to do at home, which seemed to help somewhat, but symptoms returned around Memorial day this year. Pt denies recent hearing changes, tinnitus, diplopia, dysarthria, or decreased mentation/consciousness. Pt reports symptoms are waxing /waning in nature. Pt denies hx of hyperlipidemia, diabetes, head trauma, seizure, migraines, CVA, anxiety /panic disorders, depression, or excessive smoking or drinking. PT-OP-T Assessment and Plan Start: 10/05/24 09:38 Freq: Status: Active Protocol: Document 10/05/24 09:45 DCW (Rec: 10/05/24 11:04 DCW [id number]) Physical Therapy Assessment Rehab Potential Rehabilitation Excellent Potential Evaluation Complexity Number of Personal 3 or More Factors/ Comorbidities Number of Body 4 or More Systems Impaired Clinical Unstable Presentation at Evaluation Impairments Impairments Balance,Functional Activities,Functional Mobility,Gait, Vestibular Goals Two Impairment Positive right Wink-Hallpike test Screen Printing Supervisor Goal (LTG) Pt to present with negative positional testing bilaterally LTG Duration 11/05/24 One Impairment Pt unable to lay on her right side due to position- dependent vertigo Short Term Goal (STG Pt to report no vertigo with positional changes for one ) week in order to improve her bed mobility. STG Duration 10/23/24 Assessment Summary Assessment During right Wink-Hallpike test, pt complained of vertigo and demonstrated up-beating, torsional nystagmus lasting approximately 15 seconds, consistent with diagnosis of left/right-sided posterior canal BPPV , canalithiasis-type. Pt was treated with a right-sided modified Gladys maneuver. Pt complained of symptoms in the first and third position, which is normally indicative of a successful treatment. Further positional testing was negative. Pt was educated on BPPV, expectations for treatment, possible recurrence ( BPPV has a ~50% recurrence rate in the five years following treatment), and post-Gladys restrictions. Pt to return in ~1 week for a follow-up appointment, and intermittently afterward as indicated for treatment of BPPV. Physical Therapy Plan Frequency and Duration Frequency of 1-2x/week Treatment Plan of Care Start 10/05/24 Date Plan of Care End 11/05/24 Date Therapeutic Interventions Therapeutic Balance Training,Canalithic Repositioning,Home Exercise Interventions Program,Manual Therapy,Neuromuscular Re-education, Patient/Caregiver Education,Self-Care/Home Management, Soft Tissue Mobilization,Therapeutic Activities, Therapeutic Exercises,Vestibular Rehabilitation Next Visit Focus/Plan Next Note Type Treatment Note Next Visit Plan Positional testing, CRM as indicated Plan of Care Dates Plan of Care Start Date 10/05/24 Plan of Care End Date 11/05/24 Electronically Signed by: Duane Pierre, PT 10/05/24 6701 If you are in agreement with this Plan of Care, please return a signed and dated copy. I have reviewed this Plan of Care and certify that the skilled therapy services above are required to meet the patient?s needs. Physician Signature Date Printed Name and Credentials Clinical Instructor Signature Printed Name and Credentials
--- NOTE | 2024-10-12 10:12 | PT.OTN ---
Current Diagnoses Dizziness and giddiness (10/12/24) Physical Therapy Treatment Note PT-OP-A Visit Information Start: 10/05/24 09:38 Freq: Status: Active Protocol: Document 10/12/24 09:45 DCW (Rec: 10/12/24 10:12 DCW [id number]) Out-Patient Physical Therapy Visit Information Visit Information Visit Type Treatment Note Visit Start Time 09:45 Visit Stop Time 10:10 Visit Number 2 Number of SEWER CONTRACTOR Visits 0 PT-OP-B Current Condition Start: 10/05/24 09:38 Freq: Status: Active Protocol: Document 10/05/24 09:45 DCW (Rec: 10/05/24 11:04 DCW [id number]) Current Condition History of Current Condition Onset Date ~2021 Current Complaints Position-dependent Vertigo History of Current Pt is a 74 year old female complaining of a ~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 Pt reports episodes last 20 seconds. Symptoms are provoked by lying back or onto her right side. Pt reports that her symptoms were present three years ago, she received something that was supposedly the Gladys Maneuver to do at home, which seemed to help somewhat, but symptoms returned around Memorial day this year. Pt denies recent hearing changes, tinnitus, diplopia, dysarthria, or decreased mentation/consciousness. Pt reports symptoms are waxing /waning in nature. Pt denies hx of hyperlipidemia, diabetes, head trauma, seizure, migraines, CVA, anxiety /panic disorders, depression, or excessive smoking or drinking. PT-OP-C Subjective Start: 10/05/24 09:38 Freq: Status: Active Protocol: Document 10/12/24 09:45 DCW (Rec: 10/12/24 10:12 DCW [id number]) OP-PT Subjective Patient Comments Patient Comments I'm not carouseling anymore, but I still feel more light-headed than I expected. PT-OP-O Vestibular Start: 10/05/24 09:38 Freq: Status: Active Protocol: Document 10/12/24 09:45 DCW (Rec: 10/12/24 10:12 DCW [id number]) Vestibular Assessment Positional Testing Radha-Hallpike Positive Right,Upbeating,< 60 Seconds PT-OP-Q Treatments Start: 10/05/24 09:38 Freq: Status: Active Protocol: Document 10/12/24 09:45 DCW (Rec: 10/12/24 10:12 DCW [id number]) Manual Therapy Treatment Other Other Manual Positional testing Treatments Canalithic Repositioning BPPV Treatment Gladys Affected Canal(s) Right posterior Reps x2 Comments Modified Gladys PT-OP-T Assessment and Plan Start: 10/05/24 09:38 Freq: Status: Active Protocol: Document 10/12/24 09:45 DCW (Rec: 10/12/24 10:12 DCW [id number]) Physical Therapy Assessment Goals Two Impairment Positive right [place]-Hallpike test Automatic Lehr Operator Goal (LTG) Pt to present with negative positional testing bilaterally LTG Duration 11/05/24 One Impairment Pt unable to lay on her right side due to position- dependent vertigo Short Term Goal (STG Pt to report no vertigo with positional changes for one ) week in order to improve her bed mobility. STG Duration 10/23/24 Assessment Summary Assessment Right Hallpike positive again today, performed modified Gladys x2. Pt tolerated well. Instructed to return next visit for follow-up testing and CRM as indicated.
--- NOTE | 2024-10-14 11:12 | PT.OTN ---
Current Diagnoses Dizziness and giddiness (10/14/24) Physical Therapy Treatment Note PT-OP-A Visit Information Start: 10/05/24 09:38 Freq: Status: Active Protocol: Document 10/14/24 10:45 DCW (Rec: 10/14/24 11:11 DCW [id number]) Out-Patient Physical Therapy Visit Information Visit Information Visit Type Treatment Note Visit Start Time 10:45 Visit Stop Time 10:59 Visit Number 3 Number of EXPLOSIVE ORDNANCE MANAGER Visits 0 Evaluation Information Evaluation Date 10/05/24 PT-OP-B Current Condition Start: 10/05/24 09:38 Freq: Status: Active Protocol: Document 10/05/24 09:45 DCW (Rec: 10/05/24 11:04 DCW [id number]) Current Condition History of Current Condition Onset Date ~2021 Current Complaints Position-dependent Vertigo History of Current Pt is a 74 year old female complaining of a ~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 Pt reports episodes last 20 seconds. Symptoms are provoked by lying back or onto her right side. Pt reports that her symptoms were present three years ago, she received something that was supposedly the Gladys Maneuver to do at home, which seemed to help somewhat, but symptoms returned around Memorial day this year. Pt denies recent hearing changes, tinnitus, diplopia, dysarthria, or decreased mentation/consciousness. Pt reports symptoms are waxing /waning in nature. Pt denies hx of hyperlipidemia, diabetes, head trauma, seizure, migraines, CVA, anxiety /panic disorders, depression, or excessive smoking or drinking. PT-OP-C Subjective Start: 10/05/24 09:38 Freq: Status: Active Protocol: Document 10/14/24 10:45 DCW (Rec: 10/14/24 11:11 DCW [id number]) OP-PT Subjective Patient Comments Patient Comments I'm afraid we're probably going to see something, but I haven't really been back far enough to trigger it or not. PT-OP-O Vestibular Start: 10/05/24 09:38 Freq: Status: Active Protocol: Document 10/14/24 10:45 DCW (Rec: 10/14/24 11:11 DCW [id number]) Vestibular Assessment Positional Testing [place]-Hallpike Positive Right,Upbeating,< 60 Seconds PT-OP-Q Treatments Start: 10/05/24 09:38 Freq: Status: Active Protocol: Document 10/14/24 10:45 DCW (Rec: 10/14/24 11:11 DCW [id number]) Manual Therapy Treatment Other Other Manual Positional testing Treatments Canalithic Repositioning BPPV Treatment Gladys Affected Canal(s) Right posterior Reps x1 Comments Modified Gladys PT-OP-T Assessment and Plan Start: 10/05/24 09:38 Freq: Status: Active Protocol: Document 10/14/24 10:45 DCW (Rec: 10/14/24 11:11 DCW [id number]) Physical Therapy Assessment Impairments Impairments Balance,Functional Activities,Functional Mobility,Gait, Vestibular Goals Two Impairment Positive right Radha-Hallpike test Half-Way Goal (LTG) Pt to present with negative positional testing bilaterally LTG Duration 11/05/24 One Impairment Pt unable to lay on her right side due to position- dependent vertigo Short Term Goal (STG Pt to report no vertigo with positional changes for one ) week in order to improve her bed mobility. STG Duration 10/23/24 Assessment Summary Assessment Right [place]-Hallpike today was mildly positive (~4 beats of nystagmus with very mild complaints of just the start of something that might be dizziness. Modified right Gladys was performed. Pt instructed to maintain post-Gladys restrictions for the next 24 hours. Pt notes she will likely cancel follow-up visit in 10 days if she is asymptomatic at that point. Physical Therapy Plan Frequency and Duration Frequency of 1-2x/week Treatment Plan of Care Start 10/05/24 Date Plan of Care End 11/05/24 Date Therapeutic Interventions Therapeutic Balance Training,Canalithic Repositioning,Home Exercise Interventions Program,Manual Therapy,Neuromuscular Re-education, Patient/Caregiver Education,Self-Care/Home Management, Soft Tissue Mobilization,Therapeutic Activities, Therapeutic Exercises,Vestibular Rehabilitation Next Visit Focus/Plan Next Note Type Treatment Note Next Visit Plan Positional testing, CRM as indicated
--- NOTE | 2024-10-29 17:42 | PT.OPPOC ---
Physical, Occupational & Speech Therapy At [facility] Current Diagnoses Dizziness and giddiness (10/29/24) Visit Care Team Role Provider Type Mayra Hardy MD Family Provider Non-Staff Specialty: Family Practice Address: [address] [place] [address], [id number] Email: Riley Figueroa MD Attending Provider Non-Staff Primary Care Provider Referring Provider Specialty: Medical Address: [address] [place] [address], [facility] Email: Plan Of Care PT-OP-A Visit Information Start: 10/05/24 09:38 Freq: Status: Active Protocol: Document 10/29/24 17:00 DCW (Rec: 10/29/24 17:38 DCW [id number]) Out-Patient Physical Therapy Visit Information Visit Information Visit Type Progress Note Visit Start Time 17:00 Visit Stop Time 17:21 Visit Number 4 Number of CLAIMS SERVICE ADJUSTOR Visits 0 Progress Note Due 11/28/24 Evaluation Information Evaluation Date 10/05/24 PT-OP-B Current Condition Start: 10/05/24 09:38 Freq: Status: Active Protocol: Document 10/05/24 09:45 DCW (Rec: 10/05/24 11:04 DCW [id number]) Current Condition History of Current Condition Onset Date ~2021 Current Complaints Position-dependent Vertigo History of Current Pt is a 74 year old female complaining of a ~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 Pt reports episodes last 20 seconds. Symptoms are provoked by lying back or onto her right side. Pt reports that her symptoms were present three years ago, she received something that was supposedly the Gladys Maneuver to do at home, which seemed to help somewhat, but symptoms returned around Memorial day this year. Pt denies recent hearing changes, tinnitus, diplopia, dysarthria, or decreased mentation/consciousness. Pt reports symptoms are waxing /waning in nature. Pt denies hx of hyperlipidemia, diabetes, head trauma, seizure, migraines, CVA, anxiety /panic disorders, depression, or excessive smoking or drinking. PT-OP-C Subjective Start: 10/05/24 09:38 Freq: Status: Active Protocol: Document 10/29/24 17:00 DCW (Rec: 10/29/24 17:38 DCW [id number]) OP-PT Subjective Patient Comments Patient Comments Saturday I woke up and it was carousel time again. It faded, slowly, and turned more into just a foggy headed-thing. Does think with the increased heat last week, she may have been dehydrated. PT-OP-O Vestibular Start: 10/05/24 09:38 Freq: Status: Active Protocol: Document 10/29/24 17:00 DCW (Rec: 10/29/24 17:38 DCW [id number]) Vestibular Assessment Positional Testing Somers-Hallpike Positive Right,Upbeating,< 60 Seconds PT-OP-Q Treatments Start: 10/05/24 09:38 Freq: Status: Active Protocol: Document 10/29/24 17:00 DCW (Rec: 10/29/24 17:38 DCW [id number]) Manual Therapy Treatment Other Other Manual Positional testing Treatments Canalithic Repositioning BPPV Treatment Gladys Affected Canal(s) Right posterior Reps x2 Comments Modified Gladys PT-OP-T Assessment and Plan Start: 10/05/24 09:38 Freq: Status: Active Protocol: Document 10/29/24 17:00 DCW (Rec: 10/29/24 17:38 DCW [id number]) Physical Therapy Assessment Goals Two Impairment Positive right Somers-Hallpike test Correction Goal (LTG) Pt to present with negative positional testing bilaterally LTG Duration 11/05/24 One Impairment Pt unable to lay on her right side due to position- dependent vertigo Short Term Goal (STG Pt to report no vertigo with positional changes for one ) week in order to improve her bed mobility. STG Duration 10/23/24 Assessment Summary Assessment Somers-Hallpike much more severely positive today. Performed right-sided modified Gladys maneuver, pt complained of symptoms in the first and third position. Follow-up testing was negative. Will plan to retest and perform CRM as indicated at next follow-up, pt noting again she may cancel if she is no longer symptomatic. Physical Therapy Plan Frequency and Duration Frequency of 1-2x/week Treatment Plan of Care Start 10/29/24 Date Plan of Care End 12/13/24 Date Therapeutic Interventions Therapeutic Balance Training,Canalithic Repositioning,Home Exercise Interventions Program,Manual Therapy,Neuromuscular Re-education, Patient/Caregiver Education,Self-Care/Home Management, Soft Tissue Mobilization,Therapeutic Activities, Therapeutic Exercises,Vestibular Rehabilitation Next Visit Focus/Plan Next Note Type Treatment Note Next Visit Plan Positional testing, CRM as indicated Plan of Care Dates Plan of Care Start Date 10/29/24 Plan of Care End Date 12/13/24 Electronically Signed by: Duane Pierre, PT 10/29/24 9802 If you are in agreement with this Plan of Care, please return a signed and dated copy. I have reviewed this Plan of Care and certify that the skilled therapy services above are required to meet the patient?s needs. Physician Signature Date Printed Name and Credentials Clinical Instructor Signature Printed Name and Credentials
--- NOTE | 2024-11-05 14:59 | PT.OPDS ---
Current Diagnoses Dizziness and giddiness (11/05/24) Visit Care Team Role Provider Type Mayra Hardy MD Family Provider Non-Staff Specialty: Family Practice Address: [address] [place] [address], [id number] Email: Riley Figueroa MD Attending Provider Non-Staff Primary Care Provider Referring Provider Specialty: Medical Address: [address] [place] [address], Formerly named [facility] Email: Visit Number Visit Number 5 Discharge Summary PT-OP-A Visit Information Start: 10/05/24 09:38 Freq: Status: Active Protocol: Document 11/05/24 14:30 DCW (Rec: 11/05/24 14:58 DCW [id number]) Out-Patient Physical Therapy Visit Information Visit Information Visit Type Discharge Summary Visit Start Time 14:30 Visit Stop Time 14:45 Visit Number 5 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 Pt reports episodes last 20 seconds. Symptoms are provoked by lying back or onto her right side. Pt reports that her symptoms were present three years ago, she received something that was supposedly the [employer] Maneuver to do at home, which seemed to help somewhat, but symptoms returned around Memorial day this year. Pt denies recent hearing changes, tinnitus, diplopia, dysarthria, or decreased mentation/consciousness. Pt reports symptoms are waxing /waning in nature. Pt denies hx of hyperlipidemia, diabetes, head trauma, seizure, migraines, CVA, anxiety /panic disorders, depression, or excessive smoking or drinking. PT-OP-C Subjective Start: 10/05/24 09:38 Freq: Status: Active Protocol: Document 11/05/24 14:30 DCW (Rec: 11/05/24 14:58 [facility] [id number]) OP-PT Subjective Patient Comments Patient Comments I would have said that we were good until I tried to do some pruning Saturday. Any time I would look up I would get...dizzy isn't the right word, but it's more like I feel like I'm going to pass out. PT-OP-O Vestibular Start: 10/05/24 09:38 Freq: Status: Active Protocol: Document 11/05/24 14:30 DCW (Rec: 11/05/24 14:58 [facility] [id number]) Vestibular Assessment Positional Testing Radha-Hallpike Negative Right PT-OP-T Assessment and Plan Start: 10/05/24 09:38 Freq: Status: Active Protocol: Document 11/05/24 14:30 DCW (Rec: 11/05/24 14:58 [facility] [id number]) Physical Therapy Assessment Impairments Impairments Balance,Functional Activities,Functional Mobility,Gait, Vestibular Goals Two Impairment Positive right [place]-Hallpike test Highway Inspector Goal (LTG) Pt to present with negative positional testing bilaterally LTG Duration Met One Impairment Pt unable to lay on her right side due to position- dependent vertigo Short Term Goal (STG Pt to report no vertigo with positional changes for one ) week in order to improve her bed mobility. STG Duration Met Assessment Summary Assessment Pt has met all goals, and not longer appears to be experiencing symptoms related to BPPV. Positional testing negative today. Pt did note of occasionally feeling like she was going to pass out with mild head movements, suggested she touch base with PCP. May indicate need for further work-up for vertebral artery insufficiency or BP issues. No further need for vestibular therapy noted. Physical Therapy Plan Frequency and Duration Frequency of 1-2x/week Treatment Plan of Care Start 10/29/24 Date Plan of Care End 12/13/24 Date Therapeutic Interventions Therapeutic Balance Training,Canalithic Repositioning,Home Exercise Interventions Program,Manual Therapy,Neuromuscular Re-education, Patient/Caregiver Education,Self-Care/Home Management, Soft Tissue Mobilization,Therapeutic Activities, Therapeutic Exercises,Vestibular Rehabilitation Discharge Physical Therapy Discharge Reasons Goals Met Next Visit Focus/Plan Next Note Type Discharge Summary
== END 2025-01-28 09:38 | disposition home or self-care (01) ==
LOC: PHYS 14:30
PROVIDERS: Family Provider Specialist; PCP Student in an Organized Health Care Education/Training Program; Referring Provider Student in an Organized Health Care Education/Training Program; Visit Provider Student in an Organized Health Care Education/Training Program
DX: R42 Dizziness and giddiness (principal)
CPT/HCPCS: 95992; 97140; 97163; 97535

== ENCOUNTER → 2024-11-06 10:54 | Outpatient (CLI) | payer MEDICARE, BC, SELFPAY | PROVIDERS: Family Provider Specialist; PCP Student in an Organized Health Care Education/Training Program; Referring Provider Student in an Organized Health Care Education/Training Program; Visit Provider Surgery | DX: L59.8 Other specified disorders of the skin and subcutaneous tissue related to radiation (principal); L97.812 Non-pressure chronic ulcer of other part of right lower leg with fat layer exposed | CPT/HCPCS: 99183; G0277 ==

== ENCOUNTER → 2024-11-10 11:51 | Outpatient (CLI) | payer MEDICARE, BC, SELFPAY | PROVIDERS: Family Provider Specialist; PCP Student in an Organized Health Care Education/Training Program; Referring Provider Student in an Organized Health Care Education/Training Program; Visit Provider Surgery | DX: L59.8 Other specified disorders of the skin and subcutaneous tissue related to radiation (principal); L97.812 Non-pressure chronic ulcer of other part of right lower leg with fat layer exposed | CPT/HCPCS: 99183; G0277 ==

== ENCOUNTER → 2024-11-11 10:26 | Outpatient (CLI) | payer MEDICARE, BC, SELFPAY | LOC: WC 10:33 | PROVIDERS: Family Provider Specialist; PCP Student in an Organized Health Care Education/Training Program; Referring Provider Student in an Organized Health Care Education/Training Program; Visit Provider Physician Assistant | DX: L59.8 Other specified disorders of the skin and subcutaneous tissue related to radiation (principal); L97.812 Non-pressure chronic ulcer of other part of right lower leg with fat layer exposed; Z85.828 Personal history of other malignant neoplasm of skin; E66.9 Obesity, unspecified; Z68.41 Body mass index [BMI] 40.0-44.9, adult; I10 Essential (primary) hypertension; I25.10 Atherosclerotic heart disease of native coronary artery without angina pectoris; Z95.2 Presence of prosthetic heart valve | CPT/HCPCS: 11042; 99183; 99213; G0277 ==

== ENCOUNTER → 2024-11-12 12:03 | Outpatient (CLI) | payer MEDICARE, BC, SELFPAY | LOC: WC 12:04 | PROVIDERS: Family Provider Specialist; PCP Student in an Organized Health Care Education/Training Program; Referring Provider Student in an Organized Health Care Education/Training Program; Visit Provider Physician Assistant | DX: L59.8 Other specified disorders of the skin and subcutaneous tissue related to radiation (principal); L97.812 Non-pressure chronic ulcer of other part of right lower leg with fat layer exposed | CPT/HCPCS: 99183; G0277 ==

== ENCOUNTER → 2024-11-19 08:48 | Outpatient (CLI) | payer MEDICARE, BC, SELFPAY | LOC: WC 08:56 | PROVIDERS: Family Provider Specialist; PCP Student in an Organized Health Care Education/Training Program; Referring Provider Student in an Organized Health Care Education/Training Program; Visit Provider Surgery | DX: L59.8 Other specified disorders of the skin and subcutaneous tissue related to radiation (principal); L97.812 Non-pressure chronic ulcer of other part of right lower leg with fat layer exposed; Z85.828 Personal history of other malignant neoplasm of skin; E66.9 Obesity, unspecified; Z68.41 Body mass index [BMI] 40.0-44.9, adult; I10 Essential (primary) hypertension; I25.10 Atherosclerotic heart disease of native coronary artery without angina pectoris; Z95.2 Presence of prosthetic heart valve | CPT/HCPCS: 11042 ==

== ENCOUNTER → 2024-11-24 11:35 | Outpatient (CLI) | payer MEDICARE, BC, SELFPAY | LOC: WC 11:36 | PROVIDERS: Family Provider Specialist; PCP Student in an Organized Health Care Education/Training Program; Referring Provider Student in an Organized Health Care Education/Training Program; Visit Provider Surgery | DX: L59.8 Other specified disorders of the skin and subcutaneous tissue related to radiation (principal); L97.812 Non-pressure chronic ulcer of other part of right lower leg with fat layer exposed; L53.8 Other specified erythematous conditions; R60.0 Localized edema | CPT/HCPCS: 11042 ==

== ENCOUNTER → 2024-12-01 10:53 | Outpatient (CLI) | payer MEDICARE, BC, SELFPAY | LOC: WC 10:54 | PROVIDERS: Family Provider Specialist; PCP Student in an Organized Health Care Education/Training Program; Referring Provider Student in an Organized Health Care Education/Training Program; Visit Provider Surgery | DX: L59.8 Other specified disorders of the skin and subcutaneous tissue related to radiation (principal); S81.801A Unspecified open wound, right lower leg, initial encounter; L53.8 Other specified erythematous conditions; R60.0 Localized edema | CPT/HCPCS: 15271; 99213; Q4199 ==

== ENCOUNTER → 2024-12-09 11:10 | Outpatient (CLI) | payer MEDICARE, BC, SELFPAY | LOC: WC 11:11 | PROVIDERS: Family Provider Specialist; PCP Student in an Organized Health Care Education/Training Program; Referring Provider Student in an Organized Health Care Education/Training Program; Visit Provider Surgery | DX: L97.812 Non-pressure chronic ulcer of other part of right lower leg with fat layer exposed (principal); L59.8 Other specified disorders of the skin and subcutaneous tissue related to radiation | CPT/HCPCS: 15271; 99212; Q4199 ==

== ENCOUNTER → 2024-12-15 12:03 | Outpatient (CLI) | payer MEDICARE, BC, SELFPAY | LOC: WC 12:04 | PROVIDERS: Family Provider Specialist; PCP Student in an Organized Health Care Education/Training Program; Referring Provider Student in an Organized Health Care Education/Training Program; Visit Provider Surgery | DX: L97.812 Non-pressure chronic ulcer of other part of right lower leg with fat layer exposed (principal); L59.8 Other specified disorders of the skin and subcutaneous tissue related to radiation | CPT/HCPCS: 15271; Q4199 ==

== ENCOUNTER → 2024-12-30 16:16 | Outpatient (CLI) | payer MEDICARE, BC, SELFPAY | LOC: WC 16:17 | PROVIDERS: Family Provider Specialist; PCP Student in an Organized Health Care Education/Training Program; Referring Provider Student in an Organized Health Care Education/Training Program; Visit Provider Surgery | DX: L97.812 Non-pressure chronic ulcer of other part of right lower leg with fat layer exposed (principal); L59.8 Other specified disorders of the skin and subcutaneous tissue related to radiation; R60.0 Localized edema; R23.4 Changes in skin texture | CPT/HCPCS: 15271; 99213; Q4199 ==

== ENCOUNTER → 2025-01-05 14:49 | Outpatient (CLI) | payer MEDICARE, BC, SELFPAY | LOC: WC 14:51 | PROVIDERS: Family Provider Specialist; PCP Student in an Organized Health Care Education/Training Program; Referring Provider Student in an Organized Health Care Education/Training Program; Visit Provider Surgery | DX: L59.8 Other specified disorders of the skin and subcutaneous tissue related to radiation (principal); L97.812 Non-pressure chronic ulcer of other part of right lower leg with fat layer exposed | CPT/HCPCS: 15271; Q4199 ==

== ENCOUNTER → 2025-01-12 13:24 | Outpatient (CLI) | payer MEDICARE, BC, SELFPAY | LOC: WC 13:25 | PROVIDERS: Family Provider Specialist; PCP Student in an Organized Health Care Education/Training Program; Referring Provider Student in an Organized Health Care Education/Training Program; Visit Provider Surgery | DX: L97.812 Non-pressure chronic ulcer of other part of right lower leg with fat layer exposed (principal); L59.8 Other specified disorders of the skin and subcutaneous tissue related to radiation; R60.0 Localized edema | CPT/HCPCS: 15271; Q4199 ==

== ENCOUNTER → 2025-01-19 13:37 | Outpatient (CLI) | payer MEDICARE, BC, SELFPAY | LOC: WC 13:52 | PROVIDERS: Family Provider Specialist; PCP Student in an Organized Health Care Education/Training Program; Referring Provider Student in an Organized Health Care Education/Training Program; Visit Provider Surgery | DX: S81.801A Unspecified open wound, right lower leg, initial encounter (principal); L59.8 Other specified disorders of the skin and subcutaneous tissue related to radiation; R60.0 Localized edema; R23.4 Changes in skin texture | CPT/HCPCS: 11042 ==

== ENCOUNTER → 2025-01-26 10:54 | Outpatient (CLI) | payer MEDICARE, BC, SELFPAY | LOC: WC 11:10 | PROVIDERS: Family Provider Specialist; PCP Student in an Organized Health Care Education/Training Program; Referring Provider Student in an Organized Health Care Education/Training Program; Visit Provider Surgery | DX: L59.8 Other specified disorders of the skin and subcutaneous tissue related to radiation (principal); L97.812 Non-pressure chronic ulcer of other part of right lower leg with fat layer exposed; L53.8 Other specified erythematous conditions; R23.4 Changes in skin texture; R60.0 Localized edema | CPT/HCPCS: 11042; 99213 ==

== ENCOUNTER → 2025-02-09 16:24 | Outpatient (CLI) | payer MEDICARE, BC, SELFPAY | LOC: WC 16:31 | PROVIDERS: Family Provider Specialist; PCP Student in an Organized Health Care Education/Training Program; Referring Provider Student in an Organized Health Care Education/Training Program; Visit Provider Surgery | DX: L59.8 Other specified disorders of the skin and subcutaneous tissue related to radiation (principal); S81.801A Unspecified open wound, right lower leg, initial encounter; L53.8 Other specified erythematous conditions; R60.0 Localized edema; Z85.828 Personal history of other malignant neoplasm of skin | CPT/HCPCS: 11042 ==

== ENCOUNTER → 2025-02-24 11:18 | Outpatient (CLI) | payer MEDICARE, BC, SELFPAY | LOC: WC 11:19 | PROVIDERS: Family Provider Specialist; PCP Student in an Organized Health Care Education/Training Program; Referring Provider Student in an Organized Health Care Education/Training Program; Visit Provider Surgery | DX: L97.812 Non-pressure chronic ulcer of other part of right lower leg with fat layer exposed (principal); L59.8 Other specified disorders of the skin and subcutaneous tissue related to radiation; L53.9 Erythematous condition, unspecified; R60.0 Localized edema; I10 Essential (primary) hypertension | CPT/HCPCS: 11042; 99213 ==

== ENCOUNTER → 2025-03-09 14:40 | Outpatient (CLI) | payer MEDICARE, BC, SELFPAY | LOC: WC 03-10 09:16 | PROVIDERS: Family Provider Specialist; PCP Student in an Organized Health Care Education/Training Program; Referring Provider Student in an Organized Health Care Education/Training Program; Visit Provider Surgery | DX: L59.8 Other specified disorders of the skin and subcutaneous tissue related to radiation (principal); L97.812 Non-pressure chronic ulcer of other part of right lower leg with fat layer exposed; L53.9 Erythematous condition, unspecified; L90.0 Lichen sclerosus et atrophicus; Z85.828 Personal history of other malignant neoplasm of skin; E66.9 Obesity, unspecified; Z68.41 Body mass index [BMI] 40.0-44.9, adult; I10 Essential (primary) hypertension; I25.10 Atherosclerotic heart disease of native coronary artery without angina pectoris; Z95.2 Presence of prosthetic heart valve | CPT/HCPCS: 11042 ==